=== PATIENT | female | born 1995 | race Caucasian/White ===

== ENCOUNTER 2022-01-12 08:00 | Outpatient (CLI) | payer OTHER ==
--- NOTE | 2022-01-12 10:47 | XRAY Report ---
PROCEDURE: Cervical Spine w/Flex/Ext INDICATIONS: STRAIN OF MUSCLE, FASCIA, AND TENDON OF NECK TECHNIQUE: 4 views of the cervical spine were acquired. COMPARISON: None. FINDINGS: Bones: No acute fractures or dislocations to the T1 level. No suspicious bony lesions. There is no rmal range of motion between flexion and extension, with preserved normal bony alignment. Soft tissues: Prevertebral soft tissues are normal in thickness. IMPRESSION: No acute osseous abnormality. No abnormal subluxation on flexion with flexion or extensi on. Reviewed by: Santiago Guadarrama MD on 01/12/2022 10:46 AM [facility] Approved by: Santiago Guadarrama MD on 01/12/2022 10:46 AM [facility] Station ID: [id number]
== END 2022-01-12 23:59 ==
LOC: DI.N 08:00
PROVIDERS: ATTEND Physician Assistant
DX: S16.1XXA Strain of muscle, fascia and tendon at neck level, initial encounter (principal)

== ENCOUNTER 2022-02-23 10:59 | Emergency (ER) | payer OTHER ==
[2022-02-23] MEDS ORDERED: SUMAtriptan 6 MG/0.5 ML VIAL SUBQ STA (12:34)
--- NOTE | 2022-02-23 12:36 | ED Physician Documentation ---
PD HPI FOCAL NEURO - Stated complaint Stated Complaint: NUMBNESS LEFT SIDE - Chief complaint Chief Complaint: Neuro - History obtained from History obtained from: Patient - Additional information Additional information: Previously healthy 27-year-old woman. She does have a history of migraines. At 10 AM this morning while doing light things around the house developed left- sided numbness. It started in the left arm and over the course of minutes progressed to involve the left side of the face and leg. There is no weakness with it. She feels mildly off balance with it. There is a moderate headache with it without any light sensitivity. The headache is right occipital and bilateral frontal. She denies neck stiffness or fevers. No possibility of . 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 HEENT: Chronic vision loss Psych: Depression, Anxiety Musculoskeletal: None Derm: None - Past Surgical History Past Surgical History: Yes Ortho: Other HEENT: Detached retina repair - Present Medications Home Medications: Ambulatory Orders Medication Instructions Recorded Confirmed No Known Home Medications 02/23/22 02/23/22 - Allergies Allergies/Adverse Reactions: Allergies Allergy/AdvReac Type Severity Reaction Status Date / Time No Known Drug Allergies Allergy Verified 02/23/22 11:05 - Social History Does the pt smoke?: No Smoking Status: Never smoker Does the pt drink ETOH?: Yes Does the pt have substance abuse?: No - Immunizations Immunizations are current?: Yes PD ED PE NORMAL - Vitals Vital signs reviewed: Yes - General General: Alert and oriented X 3, No acute distress - HEENT HEENT: PERRL, EOMI - Neck Neck: Supple, no meningeal sign, No bony TTP - Neuro Neuro: Alert and oriented X 3, Normal speech Eye Opening: Spontaneous Motor: Obeys Commands Verbal: Oriented GCS Score: 15 NIHSS - Time Time: 12:25 - Level of Consciousness Level of consciousness: (0) Alert, Keenly responsive LOC Questions: (0) Answers both Q's correct LOC Commands: (0) Performs both correctly - Gaze Best Gaze: (0) Normal - Visual Visual: (0) No loss - Facial Palsy Facial Palsy: (0) Normal, symmetrical movement - Motor Arms (both separate) Motor Arm (right): (0) No drift Motor Arm (left): (0) No drift - Motor Legs (both separate) Motor Leg (right): (0) No drift Motor Leg (left): (0) No drift - Limb Ataxia Limb Ataxia: (0) Absent - Sensory Sensory: (1) Tlxb-uc-[id number] loss (She has mild asymmetric sensation of the Left face, lower more than upper face, left arm and leg) - Best Language Best Language: (0) No aphasia - Dysarthria Dysarthria: (0) Normal - Extinction and Inattention (formally neg Extinction and inattention: (0) No abnormality - Total Score/Results Total Score/Result: 1 Results - Vitals Vitals: Vital Signs - 24 hr 02/23/22 02/23/22 11:05 13:43 Temperature 37 C Heart Rate 64 54 L Respiratory 16 16 Rate Blood Pressure 146/81 H 128/72 O2 Saturation 100 100 Oxygen O2 Source Room air PD MEDICAL DECISION MAKING - ED course ED course: 27-year-old woman with left-sided numbness today. The distribution is consistent with a central neurologic cause. Most likely migrainous given her young age and the association with headache, that said differential diagnosis also includes MS or stroke. An MRI was done which was normal which rules out the latter 2 differentials I think and she was not much changed after Imitrex but was getting relief after Reglan and Benadryl. Departure - Departure Disposition: 01 Home, Self Care Clinical Impression: Stroke-like symptoms Migraine Qualifiers: Migraine type: with aura Status migrainosus presence: with status migrainosus Intractability: not intractable Qualified Code(s): G43.101 - Migraine with aura, not intractable, with status migrainosus Record reviewed to determine appropriate education?: Yes Instructions: ED Headache Migraine Comments: As discussed, thankfully the MRI of your head was negative today this rules out stroke and also strongly suggest against other more serious etiologies such as multiple sclerosis. Call your doctor to arrange a follow-up appointment, make the next available appointment. In the interim, return anytime if worse or if new symptoms develop. Forms: Activity restrictions
--- NOTE | 2022-02-23 13:45 | MRI Report ---
PROCEDURE: Brain W/O INDICATIONS: L side numbness TECHNIQUE: Noncontrast axial T1 spin echo, axial T2 fast spin echo, sagittal and axial FLAIR, coronal T2 fast sp in echo, axial gradient echo, axial diffusion and ADC through the brain. COMPARISON: None. FINDINGS: Image quality: Excellent. CSF Spaces: Basal cisterns are patent. No extra-axial fluid collections. Ventricles are normal in size and shape. Brain: No intracranial masses or hemorrhage. Fried/white matter interface is normal. Brainstem appe ars normal. Diffusion-weighted images demonstrate no acute ischemic insult. No chronic ischemic ins ults. Normal intravascular flow voids are present. Skull and face: Calvarium has normal marrow signal. Orbits appear normal. Sinuses: Sinuses and mastoids are clear. IMPRESSION: 1. No acute intracranial disease process. 2. No areas of acute or chronic infarction. 3. No intracranial hemorrhage. 4. No abnormal internal mass or mass effect. Reviewed by: Britt Haro MD, PhD on 02/23/2022 1:44 PM PDT Approved by: Britt Haro MD, PhD on 02/23/2022 1:44 PM PDT Station ID: [id number]
[2022-02-23] MEDS ORDERED: METOCLOPRAMIDE 10 MG/2 ML VIAL IVP STA (13:51)
[2022-02-23] MEDS ORDERED: diphenhydrAMINE INJ 50 MG/ML VIAL IVP STA (13:51)
[2022-02-23 15:12] VITALS: BP 102/62
== END 2022-02-23 15:13 | disposition home or self-care (01) ==
LOC: ED 10:59
DX: G43.101 Migraine with aura, not intractable, with status migrainosus (principal)
CPT/HCPCS: 70551; 96372; 96374; 96375; 99283; 99284; J1200; J2765

== ENCOUNTER 2023-01-30 06:59 | Outpatient (CLI) | payer OTHER | END 2023-01-30 07:00 | disposition EMS.NT | LOC: EMS 06:59 | DX: R51.9 Headache, unspecified (principal); R11.10 Vomiting, unspecified ==

== ENCOUNTER 2023-01-30 07:28 | Emergency (ER) | payer OTHER ==
--- NOTE | 2023-01-30 07:54 | ED Physician Documentation ---
PD HPI HEADACHE - Stated complaint Stated Complaint: TOUSSAINT - Chief complaint Chief Complaint: Neuro - History obtained from History obtained from: Patient - History of Present Illness Timing - onset: Today (at about 5:30 this morning. She usually does workouts in the morning and was doing weight lifting and felt onset abruptly of posterior headache, associated with lightheadedness, nausea. Some blurred vision but no loss of vision nor focal weakness. Headache and nausea still persist.) Timing - onset during: Exertion (heavy weight lifting.) Timing - details: Abrupt onset, Still present Worst headache ever?: Worst headache ever? (she has had migraines in the past which are typically slower onset and more pressure. This is abrupt and sharp pain.) Location: Back, Right Quality: Stabbing Associated symptoms: Nausea. No: Fever, Stiff neck, Weakness Improved by: No: Rest, Meds (ibuprofen) Worsened by: Light Contributing factors: No: Hypertension, Recent illness, Trauma Similar symptoms before: Has not had sx before Recently seen: Not recently seen Review of Systems Constitutional: denies: Fever, Chills Eyes: reports: Photophobia (mild). denies: Loss of vision Nose: denies: Rhinorrhea / runny nose, Congestion Throat: denies: Sore throat Respiratory: denies: Cough GI: reports: Nausea. denies: Abdominal Pain, Vomiting Neurologic: reports: Near syncope (felt lightheaded at the onset of the headache briefly.), Headache. 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 HEENT: Chronic vision loss Psych: Depression, Anxiety Musculoskeletal: None Derm: None - Past Surgical History Past Surgical History: Yes Ortho: Other HEENT: Detached retina repair - Present Medications Home Medications: Ambulatory Orders Medication Instructions Recorded Confirmed Albuterol Sulf [Ventolin Hfa 1 - 2 puffs INH Q4HR PRN 01/30/23 01/30/23 Inhaler] HYDROcod/ACETAM 5/325 [[place] 5/325] 1 ea PO Q6H PRN #12 tablet 01/30/23 Ondansetron Odt [Zofran] 4 mg TL Q6H PRN #10 tablet 01/30/23 Propranolol ER [Inderal LA] 60 mg ORAL DAILY 01/30/23 01/30/23 methocarbamoL [Robaxin] 500 mg PO Q6H PRN #15 tablet 01/30/23 - Allergies Allergies/Adverse Reactions: Allergies Allergy/AdvReac Type Severity Reaction Status Date / Time No Known Drug Allergies Allergy Verified 02/23/22 11:05 - Social History Does the pt smoke?: No Smoking Status: Never smoker Does the pt drink ETOH?: Yes Does the pt have substance abuse?: No - Immunizations Immunizations are current?: Yes PD ED PE NORMAL - Vitals Vital signs reviewed: Yes - General General: Alert and oriented X 3, Well developed/nourished - HEENT HEENT: PERRL, EOMI, Other (normal visual quadrant testing. ) - Neck Neck: Supple, no meningeal sign, No bony TTP, No adenopathy, No JVD, No bruit - Cardiac Cardiac: RRR, No murmur - Respiratory Respiratory: Clear bilaterally - Abdomen Abdomen: Soft, Non tender - Derm Derm: Normal color, Warm and dry - Neuro Neuro: Alert and oriented X 3, No motor deficit, No sensory deficit, Normal speech Results - Vitals Vitals: Vital Signs - 24 hr 01/30/23 01/30/23 01/30/23 07:50 08:20 10:17 Temperature 36.9 C Heart Rate 60 52 L 70 Respiratory 18 16 16 Rate Blood Pressure 145/82 H 133/87 H 101/68 O2 Saturation 100 100 100 Oxygen O2 Source Room air - Rads (name of study) head CT Relevant Findings:: Prelim report reviewed, Discussed with rads, EMP independent interpretation of test (no acute process on head CT. ) Procedures - Laceration (location) occipital scalp Length in cm: 3 Wound type: Linear, Into subcut fat, Clean Anesthesia: Marcaine 0.5% Wound preparation: Irrigated copiously NS, Wound explored, To the base Skin layer closure: [place] (7 of them.) Other: Patient tolerated well, No complications, Tetanus UTD PD Medical Decision Making - ED course Complexity details: reviewed results, re-evaluated patient (feelling much improved with IV meds. ), considered differential (abrupt onset with lightheaded and nausea during exertion would be concerning for SAH or ICH. Will get CT to evaluate for bleeding. Did not have injury and no feer/recent illness. Considered but felt unnecessary to do lumbar puncture as references say that CT alone within 6 hrs of onset will R/O SAH.), d/w patient Drug Therapy Requiring Monitoring for Toxicity: IV started by nursing and patient given fluids, COmpazine and Toradol. This provided a considerable improvement in the headache but not complete. This would be consistent with functional/migraine type of headache. Offered her some other meds and she agreed. Given Dilaudid 1 mg IV. This led to near resolution of the headache and she is feeling okay otherwise without side effects of the meds. Departure - Departure Disposition: Home, Self Care Clinical Impression: Acute headache Qualifiers: Headache type: unspecified Intractability: not intractable Qualified Code(s): R51.9 - Headache, unspecified Condition: Stable Record reviewed to determine appropriate education?: Yes Instructions: ED Cephalgia Unspecified Follow-Up: JESSIE KEANE MD [Primary Care Provider] - Prescriptions: HYDROcod/ACETAM 5/325 [[place] 5/325] 1 ea PO Q6H PRN #12 tablet PRN Reason: Pain methocarbamoL [Robaxin] 500 mg PO Q6H PRN #15 tablet PRN Reason: Spasms Ondansetron Odt [Zofran] 4 mg TL Q6H PRN #10 tablet PRN Reason: Nausea / Vomiting Comments: Your CT scan does not show any acute abnormalities such as bleeding, tumors, swelling.You have not been ill and no fevers or infectious type symptoms to suggest meningitis or encephalitis. We therefore not considering lumbar puncture/spinal tap. Basic examination does not show any abnormalities to suggest strokelike symptoms etc. At this point I would assume either a migraine type headache just quicker onset than typical. Other consideration would be a muscle strain with persisting headache. I would suggest using some ibuprofen 600 mg 3 times daily for the next few days with food. To that add Tylenol every 4-6 hours if needed for pain. If there is any muscle stiffness component, then you could add methocarbamol muscle rela xant. Heat stretching and gentle activity today and into tomorrow. Progress activity tomorrow if doing well. Start with a light workout and progress back to normal. Add hydrocodone if needed for worse pain. I [email or web address]. Recheck if not improved over the next few days or if you have any new symptoms develop or worsening. I am prescribing a short course of narcotic pain medication for you. These are potentially dangerous and addictive medications that should be used carefully. These medications may constipate you. Take an vnwp-wil-[id number] stool softener such as docusate twice daily with plenty of water while taking these medications. If you go 24 hours without a bowel movement, take [id number] MiraLAX, per package instructions. Do not drink or drive while taking these medications. If you received narcotic or sedating medications while in the emergency department do not drive for 24 hours. Store this medication in a safe, secure place and out of reach of children. It is a violation of federal law to give or sell this medication to another person or to use in a manner other than prescribed. The ED will not refill narcotic prescriptions, including prescriptions lost or stolen. You can dispose of unwanted medications at the [facility] office or at several pharmacies such as [facility]. Forms: Activity restrictions Discharge Date/Time: 01/30/23 10:49
[2023-01-30] MEDS ORDERED: SODIUM CHLORIDE 0.9% 1,000 ML IV STA (08:19)
[2023-01-30] MEDS ORDERED: PROCHLORPERAZINE 10 MG/2 ML VIAL IVP STA (08:20)
--- OUTSIDE RECORDS SUMMARY | 2023-01-30 08:28 | EXTERNAL MEDICAL SUMMARY RPT | Continuity of Care Document ---
:1995 Author Organization [facility] Address [address] [place] [address] Phone Care Team Providers Name Role Phone Abrahan Altamirano Unavailable Unavailable Allergies No information. Encounters No information. Functional Status No information. Immunizations No information. Medications No information. Problems date description facility 2022-11-22 00:[address] [facility] 2022-11-22 00:[address] [facility] 2022-11-22 00:[address] [facility] 2022-11-22 17:08 Gastro-esophageal reflux disease withou t [facility] esophagitis 2022-11-22 17:08 Unspecified ovarian cyst, unspecified s christa [facility] 2022-11-22 17:08 Excessive and frequent menstruation [facility] regular cycle 2022-11-22 17:[address] [facility] Procedures No information. Results/Labs test date author facility value unit interpret ation Result panel 1 (unknown) (no date) (unknown[facility] Result panel 2 (unknown) (no date) (unknown[facility]) Result panel 3 (unknown) (no date) (unknown[facility]) Result panel 4 (unknown) (no date) (unknown[facility]) Result panel 5 (unknown) (no date) (unknown[facility]) Result panel 6 (unknown) (no date) (unknown[facility]) Result panel 7 (unknown) (no date) (unknown[facility]) Result panel 8 (unknown) (no date) (unknown[facility]) Result panel 9 (unknown) (no date) (unknown[facility]) Result panel 10 (unknown) (no date) (unknown[facility]) Result panel 11 (unknown) (no date) (unknown[facility]) Result panel 12 (unknown) (no date) (unknown[facility]) Result panel 13 (unknown) (no date) (unknown[facility]) Result panel 14 (unknown) (no date) (unknown[facility]) Result panel 15 (unknown) (no date) (unknown[facility]) Result panel 16 (unknown) (no date) (unknown[facility]) Result panel 17 (unknown) (no date) (unknown[facility] Result panel 18 (unknown) (no (unknown) (unknown) (no value) (units (unk nown) date) unknown) (unknown) (no (unknown) (unknown) 11/22/22 (units (unkno wn) date) unknown) (unknown) (no (unknown) (unknown) [id number] (units (unkno wn) date) unknown) (unknown) (no (unknown) (unknown) ADHD (units (unkno wn) date) unknown) (unknown) (no (unknown) (unknown) Age/Sex: 27 / F (units (unknown) date) Date of Service: unknown) (unknown) (no (unknown) (unknown) Allergies (units (unkn own) date) unknown) (unknown) (no (unknown) (unknown) [place], [place] (units ( unknown) date) [id number] unknown) (unknown) (no (unknown) (unknown) Anesthesia (units (unk nown) date) unknown) (unknown) (no (unknown) (unknown) Anxiety and (units (un known) date) depression unknown) (-2008) (unknown) (no (unknown) (unknown) Asthma (-1999) (units (unknown) date) unknown) (unknown) (no (unknown) (unknown) Attending Dr: (units ( unknown) date) Abrahan Altamirano unknown) (unknown) (no (unknown) (unknown) Celiac disease (units (unknown) date) unknown) (unknown) (no (unknown) (unknown) : 1995 (units (unknown) date) Acct:[id number] unknown) (unknown) (no (unknown) (unknown) Dept at (units (unkno wn) date) . unknown) (unknown) (no (unknown) (unknown) Documented By: (units (unknown) date) Abrahan Altamirano unknown) 11/22/22 1634 (unknown) (no (unknown) (unknown) Draft (units (unkno wn) date) unknown) (unknown) (no (unknown) (unknown) Family History (units (unknown) date) (Reviewed unknown) 10/20/22 @ 13:20 by Madisyn Espinal [facility]) (unknown) (no (unknown) (unknown) Family Practice (units (unknown) date) Office Visit unknown) (unknown) (no (unknown) (unknown) Father (units (unkno wn) date) Alcoholism unknown) (unknown) (no (unknown) (unknown) [facility] ([facility] unknown) (unknown) (no (unknown) (unknown) Grandfather (units (un known) date) No unknown) problems noted. 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) (unknown) (no (unknown) (unknown) Headache (units (unkno wn) date) unknown) (unknown) (no (unknown) (unknown) Heavy menstrual (units (unknown) date) period (-2007) unknown) (unknown) (no (unknown) (unknown) History of eye (units (unknown) date) surgery unknown) (-11/2018) (unknown) (no (unknown) (unknown) History of hand (units (unknown) date) surgery unknown) () (unknown) (no (unknown) (unknown) Intake performed (units (unknown) date) by: Betty Heart unknown) J (unknown) (no (unknown) (unknown) Intake (units (unkno wn) date) unknown) (unknown) (no (unknown) (unknown) Intake- Clincial (units (unknown) date) Staff unknown) (unknown) (no (unknown) (unknown) Loc: [facility] (units (unkno wn) date) unknown) (unknown) (no (unknown) (unknown) Lung cancer (units (un known) date) unknown) (unknown) (no (unknown) (unknown) Lupus (units (unkno wn) date) unknown) (unknown) (no (unknown) (unknown) Macular (units (unkno wn) date) degeneration unknown) (unknown) (no (unknown) (unknown) Medical History (units (unknown) date) (Reviewed unknown) 10/20/22 @ 13:20 by Madisyn Espinal [facility]) (unknown) (no (unknown) (unknown) Mental health (units ( unknown) date) problem unknown) (unknown) (no (unknown) (unknown) Mother (units (unkno wn) date) Autoimmune unknown) disease (unknown) (no (unknown) (unknown) No Known Drug (units ( unknown) date) Allergies Allergy unknown) (Verified 10/20/22 11:37) (unknown) (no (unknown) (unknown) Ovarian cyst (units (u nknown) date) (-2014) unknown) (unknown) (no (unknown) (unknown) PFSH (units (unkno wn) date) unknown) (unknown) (no (unknown) (unknown) Painful (units (unkno wn) date) menstrual periods unknown) (-2007) (unknown) (no (unknown) (unknown) Patient: (units (unkno wn) date) Eleazar Quispe unknown) MR#: [id number] (unknown) (no (unknown) (unknown) Reason For Visit (units (unknown) date) unknown) (unknown) (no (unknown) (unknown) Retinal (units (unkno wn) date) detachment unknown) (-2017) (unknown) (no (unknown) (unknown) Rheumatoid (units (unk nown) date) arthritis unknown) (unknown) (no (unknown) (unknown) S/P foot (units (unkno wn) date) surgery, left unknown) (-04/2011) (unknown) (no (unknown) (unknown) Seizure (units (unkno wn) date) unknown) (unknown) (no (unknown) (unknown) Signed By: (units (unk nown) date) unknown) (unknown) (no (unknown) (unknown) Sister Mental (units ( unknown) date) health problem unknown) (unknown) (no (unknown) (unknown) Sjogren's (units (unkn own) date) disease unknown) (unknown) (no (unknown) (unknown) Smoking Status: (units (unknown) date) Never smoker unknown) (unknown) (no (unknown) (unknown) Surgical History (units (unknown) date) (Reviewed unknown) 10/20/22 @ 13:20 by FIOR Robles) (unknown) (no (unknown) (unknown) This note may (units ( unknown) date) have been all or unknown) partially generated using voice recognition (unknown) (no (unknown) (unknown) Tobacco + (units (unkn own) date) Substance Use unknown) (unknown) (no (unknown) (unknown) Tobacco Status (units (unknown) date) unknown) (unknown) (no (unknown) (unknown) Visit Reasons: (units (unknown) date) follow up from ER unknown) (unknown) (no (unknown) (unknown) have occurred. (units (unknown) date) If there are any unknown) questions, please contact the Medical Records (unknown) (no (unknown) (unknown) may occur. (units (unk nown) date) Occasional unknown) wrong-word or 'sound-alike' substitutions may have (unknown) (no (unknown) (unknown) occurred due to (units (unknown) date) the inherent unknown) limitations of voice recognition software. Please (unknown) (no (unknown) (unknown) read the note (units ( unknown) date) carefully and unknown) recognize, using context, where these substitutions (unknown) (no (unknown) (unknown) software. (units (unkn own) date) Although every unknown) effort is made to edit content, film examiner errors Result panel 19 (unknown) (no (unknown) (unknown) (no value) (units (unk nown) date) unknown) (unknown) (no (unknown) (unknown) 11/22/22 (units (unkno wn) date) unknown) (unknown) (no (unknown) (unknown) [id number] (units (unkno wn) date) unknown) (unknown) (no (unknown) (unknown) 02/28/22 [Rx (units (u nknown) date) Confirmed unknown) 11/22/22] (unknown) (no (unknown) (unknown) 16:38 (units (unkno wn) date) unknown) (unknown) (no (unknown) (unknown) ADHD (units (unkno wn) date) unknown) (unknown) (no (unknown) (unknown) Age/Sex: 27 / F (units (unknown) date) Date of Service: unknown) (unknown) (no (unknown) (unknown) Allergies (units (unkn own) date) unknown) (unknown) (no (unknown) (unknown) [place], [place] (units ( unknown) date) [id number] unknown) (unknown) (no (unknown) (unknown) Anesthesia (units (unk nown) date) unknown) (unknown) (no (unknown) (unknown) Anxiety and (units (un known) date) depression unknown) (-2008) (unknown) (no (unknown) (unknown) Asthma (-1999) (units (unknown) date) unknown) (unknown) (no (unknown) (unknown) Attending Dr: (units ( unknown) date) Abrahan Altamirano unknown) (unknown) (no (unknown) (unknown) BMI 27.9 (units (unkno wn) date) unknown) (unknown) (no (unknown) (unknown) BP 110/70 (units (unkn own) date) unknown) (unknown) (no (unknown) (unknown) Celiac disease (units (unknown) date) unknown) (unknown) (no (unknown) (unknown) : 1995 (units (unknown) date) Acct:[id number] unknown) (unknown) (no (unknown) (unknown) Date of Last (units (u nknown) date) Menstrual Period: unknown) 11/01/22 (unknown) (no (unknown) (unknown) Dept at (units (unkno wn) date) . unknown) (unknown) (no (unknown) (unknown) Documented By: (units (unknown) date) Abrahan Altamirano unknown) 11/22/22 1634 (unknown) (no (unknown) (unknown) Draft (units (unkno wn) date) unknown) (unknown) (no (unknown) (unknown) ER follow up. (units (u nknown) date) felt possible unknown) allergic rx to ABX. dizziness SOB . new GI digestive (unknown) (no (unknown) (unknown) Family History (units (unknown) date) (Reviewed unknown) 10/20/22 @ 13:20 by Madisyn Espinal [facility]) (unknown) (no (unknown) (unknown) Family Practice (units (unknown) date) Office Visit unknown) (unknown) (no (unknown) (unknown) Father (units (unkno wn) date) Alcoholism unknown) (unknown) (no (unknown) (unknown) [facility] (units ([facility] date[facility] unknown) (unknown) (no (unknown) (unknown) Grandfather (units (un known) date) No unknown) problems noted. 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) (unknown) (no (unknown) (unknown) Headache (units (unkno wn) date) unknown) (unknown) (no (unknown) (unknown) Health (units (unkno wn) date) Management unknown) reviewed with patient: Yes (unknown) (no (unknown) (unknown) Health (units (unkno wn) date) Management unknown) (unknown) (no (unknown) (unknown) Heavy menstrual (units (unknown) date) period () unknown) (unknown) (no (unknown) (unknown) Height 5 ft 10 (units (unknown) date) in unknown) (unknown) (no (unknown) (unknown) History of eye (units (unknown) date) surgery unknown) () (unknown) (no (unknown) (unknown) History of hand (units (unknown) date) surgery unknown) () (unknown) (no (unknown) (unknown) Intake Note: (units (u nknown) date) unknown) (unknown) (no (unknown) (unknown) Intake performed (units (unknown) date) by: Betty Heart unknown) Dejuan (unknown) (no (unknown) (unknown) Intake (units (unkno wn) date) unknown) (unknown) (no (unknown) (unknown) Intake- Clincial (units (unknown) date) Staff unknown) (unknown) (no (unknown) (unknown) Last Menstural (units (unknown) date) Cycle + Details unknown) (unknown) (no (unknown) (unknown) Loc: [facility] (units (unkno wn) date) unknown) (unknown) (no (unknown) (unknown) Lung cancer (units (un known) date) unknown) (unknown) (no (unknown) (unknown) Lupus (units (unkno wn) date) unknown) (unknown) (no (unknown) (unknown) Macular (units (unkno wn) date) degeneration unknown) (unknown) (no (unknown) (unknown) Medical History (units (unknown) date) (Reviewed unknown) 10/20/22 @ 13:20 by FIOR Robles) (unknown) (no (unknown) (unknown) Medications (units (un known) date) unknown) (unknown) (no (unknown) (unknown) Mental health (units ( unknown) date) problem unknown) (unknown) (no (unknown) (unknown) Mother (units (unkno wn) date) Autoimmune unknown) disease (unknown) (no (unknown) (unknown) No Known Drug (units ( unknown) date) Allergies Allergy unknown) (Verified 10/20/22 11:37) (unknown) (no (unknown) (unknown) Ovarian cyst (units (u nknown) date) (-2014) unknown) (unknown) (no (unknown) (unknown) PFSH (units (unkno wn) date) unknown) (unknown) (no (unknown) (unknown) Painful (units (unkno wn) date) menstrual periods unknown) () (unknown) (no (unknown) (unknown) Patient: (units (unkno wn) date) Eleazar Quispe unknown) MR#: [id number] (unknown) (no (unknown) (unknown) Pulse 74 (units (unkno wn) date) unknown) (unknown) (no (unknown) (unknown) Pulse Oximetry (units (unknown) date) (%) 99 unknown) (unknown) (no (unknown) (unknown) Reason For Visit (units (unknown) date) unknown) (unknown) (no (unknown) (unknown) Respiration 16 (units (unknown) date) unknown) (unknown) (no (unknown) (unknown) Retinal (units (unkno wn) date) detachment unknown) () (unknown) (no (unknown) (unknown) Rheumatoid (units (unk nown) date) arthritis unknown) (unknown) (no (unknown) (unknown) S/P foot (units (unkno wn) date) surgery, left unknown) () (unknown) (no (unknown) (unknown) Seizure (units (unkno wn) date) unknown) (unknown) (no (unknown) (unknown) Signed By: (units (unk nown) date) unknown) (unknown) (no (unknown) (unknown) Sister Mental (units ( unknown) date) health problem unknown) (unknown) (no (unknown) (unknown) Sjogren's (units (unkn own) date) disease unknown) (unknown) (no (unknown) (unknown) Smoking Status: (units (unknown) date) Never smoker unknown) (unknown) (no (unknown) (unknown) Surgical History (units (unknown) date) (Reviewed unknown) 10/20/22 @ 13:20 by FIOR Robles) (unknown) (no (unknown) (unknown) Temp 98 F (units (unkn own) date) unknown) (unknown) (no (unknown) (unknown) This note may (units ( unknown) date) have been all or unknown) partially generated using voice recognition (unknown) (no (unknown) (unknown) Tobacco + (units (unkn own) date) Substance Use unknown) (unknown) (no (unknown) (unknown) Tobacco Status (units (unknown) date) unknown) (unknown) (no (unknown) (unknown) Visit Reasons: (units (unknown) date) follow up from ER unknown) (unknown) (no (unknown) (unknown) Vitals (units (unkno wn) date) unknown) (unknown) (no (unknown) (unknown) Vitami D3 PO (units (u nknown) date) 11/18/21 [History unknown) Confirmed 11/22/22] (unknown) (no (unknown) (unknown) Weight 195 lb (units ( unknown) date) unknown) (unknown) (no (unknown) (unknown) have occurred. (units (unknown) date) If there are any unknown) questions, please contact the Medical Records (unknown) (no (unknown) (unknown) issues. PCOS. (units ( unknown) date) unknown) (unknown) (no (unknown) (unknown) may occur. (units (unk nown) date) Occasional unknown) wrong-word or 'sound-alike' substitutions may have (unknown) (no (unknown) (unknown) occurred due to (units (unknown) date) the inherent unknown) limitations of voice recognition software. Please (unknown) (no (unknown) (unknown) ondansetron 4 mg (units (unknown) date) disintegrating unknown) tablet 4 mg PO Q8H PRN nausea and vomiting #10 (unknown) (no (unknown) (unknown) read the note (units ( unknown) date) carefully and unknown) recognize, using context, where these substitutions (unknown) (no (unknown) (unknown) software. (units (unkn own) date) Although every unknown) effort is made to edit content, film examiner errors (unknown) (no (unknown) (unknown) sumatriptan (units (un known) date) succinate 25 mg unknown) tablet See Rx Instructions PO .COMPLEX #20 tabs (unknown) (no (unknown) (unknown) tabs 10/20/22 (units ( unknown) date) [Rx Confirmed unknown) 11/22/22] Result panel 20 (unknown) (no date) (unknown) (unknown) 0.36 ng/dl (unkn own) (unknown) (no date) (unknown) (unknown) 0.36 ng/dl 2991- 8 (unknown) (no date) (unknown) (unknown) 0.94 % (unkn own) (unknown) (no date) (unknown) (unknown) 0.94 % 74413 -8 (unknown) (no date) (unknown) (unknown) 258.0 ug/dl (unkn own) (unknown) (no date) (unknown) (unknown) 258.0 ug/dl 2191- 5 (unknown) (no date) (unknown) (unknown) 38.1 ng/dl (unkn own) (unknown) (no date) (unknown) (unknown) 38.1 ng/dl 2986- 8 (unknown) (no date) (unknown) (unknown) Negative (units (unkn own) unknown) (unknown) (no date) (unknown) (unknown) Negative (units 00681 -9 unknown) Result panel 21 (unknown) (no (unknown) (unknown) (no value) (units (unk nown) date) unknown) (unknown) (no (unknown) (unknown) (1) GERD (units (unkno wn) date) (gastroesophageal reflux unkno wn) disease): (unknown) (no (unknown) (unknown) (2) Epigastric (units (unknown) date) discomfort: unknown) (unknown) (no (unknown) (unknown) (3) Ovarian cyst: (units (unknown) date) unknown) (unknown) (no (unknown) (unknown) (4) Heavy menstrual (unit s (unknown) date) period: unknown) (unknown) (no (unknown) (unknown) 11/22/22 1706 (units ( unknown) date) unknown) (unknown) (no (unknown) (unknown) 11/22/22 (units (unkno wn) date) unknown) (unknown) (no (unknown) (unknown) [address] (units (unkno wn) date) unknown) (unknown) (no (unknown) (unknown) 02/28/22 [Rx Confirmed (u nits (unknown) date) 11/22/22] unknown) (unknown) (no (unknown) (unknown) 16:38 (units (unkno wn) date) unknown) (unknown) (no (unknown) (unknown) ADHD (units (unkno wn) date) unknown) (unknown) (no (unknown) (unknown) Age/Sex: 27 / F Date of ( units (unknown) date) Service: unknown) (unknown) (no (unknown) (unknown) Allergies (units (unkn own) date) unknown) (unknown) (no (unknown) (unknown) [place]ARIS [id number] (unit s (unknown) date) unknown) (unknown) (no (unknown) (unknown) Anesthesia (units (unk nown) date) unknown) (unknown) (no (unknown) (unknown) Anxiety and depression (u nits (unknown) date) (-2008) unknown) (unknown) (no (unknown) (unknown) Assessment + Plan (units (unknown) date) unknown) (unknown) (no (unknown) (unknown) Asthma (-1999) (units (unknown) date) unknown) (unknown) (no (unknown) (unknown) Attending Dr: Abrahan Rogel ( units (unknown) date) Adarsh GARIBAY unknown) (unknown) (no (unknown) (unknown) BMI 27.9 (units (unkno wn) date) unknown) (unknown) (no (unknown) (unknown) BP 110/70 (units (unkn own) date) unknown) (unknown) (no (unknown) (unknown) Eleazar is a 27Y F with ( units (unknown) date) history of headaches who unkno wn) is here to follow-up in the (unknown) (no (unknown) (unknown) Eleazar is sitting up, (u nits (unknown) date) pleasant, no acute unknown) distress. No evidence of hirsutism (unknown) (no (unknown) (unknown) Celiac disease (units (unknown) date) unknown) (unknown) (no (unknown) (unknown) Chief Complaint (units (unknown) date) unknown) (unknown) (no (unknown) (unknown) Chief Complaint: ED (unit s (unknown) date) follow-up unknown) (unknown) (no (unknown) (unknown) Code(s): K21.9 - (units (unknown) date) Gastro-esophageal reflux unkno wn) disease without esophagitis (unknown) (no (unknown) (unknown) Comprehensive Metabolic ( units (unknown) date) Panel Today N83.209 - unknown) Unspecified ovarian cyst, (unknown) (no (unknown) (unknown) : 1995 (units (unknown) date) Acct:[id number] unknown) (unknown) (no (unknown) (unknown) Date of Last Menstrual (u nits (unknown) date) Period: 11/01/22 unknown) (unknown) (no (unknown) (unknown) Dehydroepiandrosterone (u nits (unknown) date) Sulfate Today N83.209 - unknow n) Unspecified ovarian cyst, (unknown) (no (unknown) (unknown) Dept at . (u nits (unknown) date) unknown) (unknown) (no (unknown) (unknown) Details: (units (unkno wn) date) unknown) (unknown) (no (unknown) (unknown) Documented By: (units (unknown) date) Abrahan Altamirano MD unknown) 11/22/22 1634 (unknown) (no (unknown) (unknown) ER follow up. felt (units (unknown) date) possible allergic rx to unknow n) ABX. dizziness SOB . new GI digestive (unknown) (no (unknown) (unknown) Esophagitis presence: (un its (unknown) date) esophagitis presence not unkno wn) specified Qualified (unknown) (no (unknown) (unknown) Exam Narrative (units (unknown) date) unknown) (unknown) (no (unknown) (unknown) Exam Narrative: (units (unknown) date) unknown) (unknown) (no (unknown) (unknown) Exam (units (unkno wn) date) unknown) (unknown) (no (unknown) (unknown) Excessive and frequent (u nits (unknown) date) menstruation with unknown) regular cycle (unknown) (no (unknown) (unknown) Family History (units (unknown) date) (Reviewed 10/20/22 @ unknown) 13:20 by FIOR Robles) (unknown) (no (unknown) (unknown) Family Practice Office (u nits (unknown) date) Visit unknown) (unknown) (no (unknown) (unknown) Father Alcoholism (units (unknown) date) unknown) (unknown) (no (unknown) (unknown) [facility] ([facility] date[facility] unknown) (unknown) (no (unknown) (unknown) For Eleazar's (units ( unknown) date) increasing GERD unknown) symptoms, will check H pylori well as lipase. Did (unknown) (no (unknown) (unknown) Grandfather No ( units (unknown) date) problems noted. unknown) (unknown) (no (unknown) (unknown) Grandmother (uni ts (unknown) date) Cancer of sinus unknown) (unknown) (no (unknown) (unknown) Grandmother Diabetes (uni ts (unknown) date) mellitus unknown) (unknown) (no (unknown) (unknown) H pylori Breath Test (uni ts (unknown) date) Today K21.9 - unknown) Gastro-esophageal reflux disease without (unknown) (no (unknown) (unknown) HPI (units (unkno wn) date) unknown) (unknown) (no (unknown) (unknown) Jerrod's disease (unit s (unknown) date) unknown) (unknown) (no (unknown) (unknown) Headache (units (unkno wn) date) unknown) (unknown) (no (unknown) (unknown) Health Management (units (unknown) date) reviewed with patient: unknown ) Yes (unknown) (no (unknown) (unknown) Health Management (units (unknown) date) unknown) (unknown) (no (unknown) (unknown) Heavy menstrual period (u nits (unknown) date) () unknown) (unknown) (no (unknown) (unknown) Height 5 ft 10 in (units (unknown) date) unknown) (unknown) (no (unknown) (unknown) History of eye surgery (u nits (unknown) date) () unknown) (unknown) (no (unknown) (unknown) History of hand surgery ( units (unknown) date) () unknown) (unknown) (no (unknown) (unknown) Intake Note: (units (u nknown) date) unknown) (unknown) (no (unknown) (unknown) Intake performed by: (uni ts (unknown) date) Betty Heart unknown) (unknown) (no (unknown) (unknown) Intake (units (unkno wn) date) unknown) (unknown) (no (unknown) (unknown) Intake- Clincial Staff (u nits (unknown) date) unknown) (unknown) (no (unknown) (unknown) Last Menstural Cycle + (u nits (unknown) date) Details unknown) (unknown) (no (unknown) (unknown) Laterality: unspecified ( units (unknown) date) laterality Qualified unknown) Code(s): N83.209 (unknown) (no (unknown) (unknown) Lipase Today K21.9 - (uni ts (unknown) date) Gastro-esophageal reflux unkno wn) disease without esophagitis, (unknown) (no (unknown) (unknown) Loc: [facility] (units (unkno wn) date) unknown) (unknown) (no (unknown) (unknown) Lung cancer (units (un known) date) unknown) (unknown) (no (unknown) (unknown) Lupus (units (unkno wn) date) unknown) (unknown) (no (unknown) (unknown) Macular degeneration (uni ts (unknown) date) unknown) (unknown) (no (unknown) (unknown) Medical History (units (unknown) date) (Reviewed 10/20/22 @ unknown) 13:20 by Madisyn Espinal [facility]) (unknown) (no (unknown) (unknown) Medications (units (un known) date) unknown) (unknown) (no (unknown) (unknown) Menorrhagia type: with (u nits (unknown) date) regular cycle Qualified unknow n) Code(s): N92.0 (unknown) (no (unknown) (unknown) Mental health problem (un its (unknown) date) unknown) (unknown) (no (unknown) (unknown) Mother Autoimmune (units (unknown) date) disease unknown) (unknown) (no (unknown) (unknown) No Known Drug Allergies ( units (unknown) date) Allergy (Verified unknown) 10/20/22 11:37) (unknown) (no (unknown) (unknown) Orders (units (unkno wn) date) unknown) (unknown) (no (unknown) (unknown) Orders: (units (unkno wn) date) unknown) (unknown) (no (unknown) (unknown) Ovarian cyst (-2014) (uni ts (unknown) date) unknown) (unknown) (no (unknown) (unknown) PFSH (units (unkno wn) date) unknown) (unknown) (no (unknown) (unknown) Painful menstrual (units (unknown) date) periods (-2007) unknown) (unknown) (no (unknown) (unknown) Patient: Eleazar Quispe (u nits (unknown) date) MR#: [id number] unknown) (unknown) (no (unknown) (unknown) Plan (units (unkno wn) date) unknown) (unknown) (no (unknown) (unknown) Pulse 74 (units (unkno wn) date) unknown) (unknown) (no (unknown) (unknown) Pulse Oximetry (%) 99 (un its (unknown) date) unknown) (unknown) (no (unknown) (unknown) Qualifiers: (units (un known) date) unknown) (unknown) (no (unknown) (unknown) R10.13 - Epigastric (unit s (unknown) date) pain unknown) (unknown) (no (unknown) (unknown) Reason For Visit (units (unknown) date) unknown) (unknown) (no (unknown) (unknown) Respiration 16 (units (unknown) date) unknown) (unknown) (no (unknown) (unknown) Retinal detachment (units (unknown) date) () unknown) (unknown) (no (unknown) (unknown) Rheumatoid arthritis (uni ts (unknown) date) unknown) (unknown) (no (unknown) (unknown) S/P foot surgery, left (u nits (unknown) date) () unknown) (unknown) (no (unknown) (unknown) Seizure (units (unkno wn) date) unknown) (unknown) (no (unknown) (unknown) She suspect they may (uni ts (unknown) date) have been related to her unkno wn) antibiotic. She also does have (unknown) (no (unknown) (unknown) Signed By: (units (unk nown) date) <Electronically signed unknown ) by Abrahan Altamirano MD> (unknown) (no (unknown) (unknown) Signed (units (unkno wn) date) unknown) (unknown) (no (unknown) (unknown) Sister Mental health (uni ts (unknown) date) problem unknown) (unknown) (no (unknown) (unknown) Sjogren's disease (units (unknown) date) unknown) (unknown) (no (unknown) (unknown) Smoking Status: Never (un its (unknown) date) smoker unknown) (unknown) (no (unknown) (unknown) Status: Acute (units ( unknown) date) unknown) (unknown) (no (unknown) (unknown) Surgical History (units (unknown) date) (Reviewed 10/20/22 @ unknown) 13:20 by Madisyn Espinal [facility]) (unknown) (no (unknown) (unknown) Temp 98 F (units (unkn own) date) unknown) (unknown) (no (unknown) (unknown) Testosterone Free and (un its (unknown) date) Total Today N83.209 - unknown) Unspecified ovarian cyst, (unknown) (no (unknown) (unknown) This note may have been ( units (unknown) date) all or partially unknown) generated using voice recognition (unknown) (no (unknown) (unknown) Tobacco + Substance Use ( units (unknown) date) unknown) (unknown) (no (unknown) (unknown) Tobacco Status (units (unknown) date) unknown) (unknown) (no (unknown) (unknown) Unspecified ovarian (unit s (unknown) date) cyst, unspecified side unknown ) (unknown) (no (unknown) (unknown) Visit Reasons: follow (un its (unknown) date) up from ER unknown) (unknown) (no (unknown) (unknown) Vitals (units (unkno wn) date) unknown) (unknown) (no (unknown) (unknown) Vitami D3 PO 11/18/21 (un its (unknown) date) [History Confirmed unknown) 11/22/22] (unknown) (no (unknown) (unknown) Weight 195 lb (units ( unknown) date) unknown) (unknown) (no (unknown) (unknown) antibiotic and this (unit s (unknown) date) could be contributing to unkno wn) those symptoms. If she does not (unknown) (no (unknown) (unknown) clear association with (u nits (unknown) date) any particular foods unknown) though it does seem to happen with (unknown) (no (unknown) (unknown) emergency department (uni ts (unknown) date) for lightheadedness. unknown) These symptoms have since resolved. (unknown) (no (unknown) (unknown) esophagitis, R10.13 - (un its (unknown) date) Epigastric pain unknown) (unknown) (no (unknown) (unknown) food. She was also (units (unknown) date) found to have ovarian unknown) cyst on ultrasound and was told she (unknown) (no (unknown) (unknown) have occurred. If there ( units (unknown) date) are any questions, unknown) please contact the Medical Records (unknown) (no (unknown) (unknown) hirsutism. Follow-up (uni ts (unknown) date) pending lab results. unknown) (unknown) (no (unknown) (unknown) improve, will have her (u nits (unknown) date) trial with Prilosec for unknow n) 6 weeks. She was found to have (unknown) (no (unknown) (unknown) increasing heartburn (uni ts (unknown) date) symptoms and epigastric unknow n) discomfort. She does not have (unknown) (no (unknown) (unknown) issues. PCOS. (units ( unknown) date) unknown) (unknown) (no (unknown) (unknown) may have PCOS. (units (unknown) date) unknown) (unknown) (no (unknown) (unknown) may occur. Occasional (un its (unknown) date) wrong-word or unknown) 'sound-alike' substitutions may have (unknown) (no (unknown) (unknown) occurred due to the (unit s (unknown) date) inherent limitations of unknow n) voice recognition software. Please (unknown) (no (unknown) (unknown) ondansetron 4 mg (units (unknown) date) disintegrating tablet 4 unknow n) mg PO Q8H PRN nausea and vomiting #10 (unknown) (no (unknown) (unknown) ovarian cyst and I will ( units (unknown) date) check testosterone and unknown ) DHEA-S for evidence of PCOS (unknown) (no (unknown) (unknown) read the note carefully ( units (unknown) date) and recognize, using unknown) context, where these substitutions (unknown) (no (unknown) (unknown) recommend she take (units (unknown) date) probiotic for a few unknown) weeks given that she was just recently on (unknown) (no (unknown) (unknown) software. 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 (unknown) (no (unknown) (unknown) sumatriptan succinate (un its (unknown) date) 25 mg tablet See Rx unknown) Instructions PO .COMPLEX #20 tabs (unknown) (no (unknown) (unknown) tabs 10/20/22 [Rx (units (unknown) date) Confirmed 11/22/22] unknown) (unknown) (no (unknown) (unknown) though I find this (units (unknown) date) unlikely given her unknown) fairly regular periods and lack of (unknown) (no (unknown) (unknown) unspecified side, N92.0 (u nits (unknown) date) - Excessive and frequent unkno wn) menstruation with regular cycle Result panel 22 (unknown) (no date) (unknown) (unknown) > 60 ml/min (unkn own) (unknown) (no date) (unknown) (unknown) > 60 ml/min (unkn own) (unknown) (no date) (unknown) (unknown) 0.5 mg/dl (unkn own) (unknown) (no date) (unknown) (unknown) 1.14 mg/dl (unkn own) (unknown) (no date) (unknown) (unknown) 1.6 (units unknown) (unknown) (unknown) (no date) (unknown) (unknown) 101 mmol/l (unkn own) (unknown) (no date) (unknown) (unknown) 138 mmol/l (unkn own) (unknown) (no date) (unknown) (unknown) 16.7 (units unknown) (unknown) (unknown) (no date) (unknown) (unknown) 18 iu/l (unkn own) (unknown) (no date) (unknown) (unknown) 19 mg/dl (unkn own) (unknown) (no date) (unknown) (unknown) 2.9 g/dl (unkn own) (unknown) (no date) (unknown) (unknown) 25 iu/l (unkn own) (unknown) (no date) (unknown) (unknown) 27 mmol/l (unkn own) (unknown) (no date) (unknown) (unknown) 4.1 mmol/l (unkn own) (unknown) (no date) (unknown) (unknown) 4.5 g/dl (unkn own) (unknown) (no date) (unknown) (unknown) 46 u/l (unkn own) (unknown) (no date) (unknown) (unknown) 46 u/l (unkn own) (unknown) (no date) (unknown) (unknown) 7.4 g/dl (unkn own) (unknown) (no date) (unknown) (unknown) 84 mg/dl (unkn own) (unknown) (no date) (unknown) (unknown) 84 mg/dl (unkn own) (unknown) (no date) (unknown) (unknown) 9.0 mg/dl (unkn own) Result panel 23 (unknown) (no date) (unknown) (unknown) Negative (units (unkn own) unknown) (unknown) (no date) (unknown) (unknown) Negative (units (unkn own) unknown) Result panel 24 (unknown) (no date) (unknown) (unknown) 258.0 ug/dl (unkn own) (unknown) (no date) (unknown) (unknown) 258.0 ug/dl (unkn own) Result panel 25 (unknown) (no date) (unknown) (unknown) 0.36 ng/dl (unkn own) (unknown) (no date) (unknown) (unknown) 0.94 % (unkn own) (unknown) (no date) (unknown) (unknown) 0.94 % (unkn own) (unknown) (no date) (unknown) (unknown) 38.1 ng/dl (unkn own) (unknown) (no date) (unknown) (unknown) 38.1 ng/dl (unkn own) Social History date description facility 2022-11-22 00:00 Never smoked tobacco ([facility] Vital Signs date measurement value units 2022-11-22 00:00 BMI 27.9 kg/m2 2022-11-22 00:00 BP_diastolic 70 mmHg 2022-11-22 00:00 BP_systolic 110 mmHg 2022-11-22 00:00 heart_rate 74 /min 2022-11-22 00:00 height_metric 177.8 cm 2022-11-22 00:00 height_standard 70 in 2022-11-22 00:00 o2_saturation 99 % 2022-11-22 00:00 respiration_rate 16 /min 2022-11-22 00:00 temperature_metric 36.67 C 2022-11-22 00:00 temperature_standard 98 F 2022-11-22 00:00 weight_metric 88.45 kg 2022-11-22 00:00 weight_standard 195 lb
--- NOTE | 2023-01-30 09:08 | CT Report ---
PROCEDURE: HEAD WO INDICATIONS: Abrupt headache with exercise this AM TECHNIQUE: Noncontrast 4.5 mm thick angled axial sections acquired from the foramen magnum to the vertex. For r adiation dose reduction, the following was used: automated exposure control, adjustment of mA and/or kV according to patient size. COMPARISON: 02/23/2022 MRI brain FINDINGS: Image quality: Excellent. CSF spaces: Basal cisterns are patent. No extra-axial fluid collections. Ventricles are normal in size and shape. Brain: No midline shift. No intracranial masses or hemorrhage. Fried-white matter interface is norm al. Skull and face: Calvarium and visualized facial bones are intact, without suspicious lesions. Sinuses: Visualized sinuses and mastoids are clear. IMPRESSION: Normal head CT. Reviewed by: Shiv Field MD on 01/30/2023 9:07 AM PDT Approved by: Shiv Field MD on 01/30/2023 9:07 AM PDT Station ID: [id number]
[2023-01-30] MEDS ORDERED: KETOROLAC 15 MG/ML VIAL IVP STA (09:26)
[2023-01-30] MEDS ORDERED: HYDROmorphone 1 MG/ML CARPUJECT IVP STA (09:26)
[2023-01-30 10:18] VITALS: BP 101/68
== END 2023-01-30 10:49 | disposition home or self-care (01) ==
LOC: EDUNIT# → ED 07:28
DX: R51.9 Headache, unspecified (principal)
CPT/HCPCS: 70450; 96374; 96375; 99284; J1170; 12002; 81514